=== PATIENT | male | born 1980 | race Caucasian/White ===

== ENCOUNTER → 2024-10-30 | Outpatient (CLI) | payer BC, SELFPAY ==
--- NOTE | 2024-10-30 | XR_ITS ---
Examination: PA lateral chest 2 views TECHNIQUE: Upright PA lateral chest 2 views Date and time: October 30, 2024 0756 hours INDICATIONS: Chest pain 2 months after falling off a horse FINDINGS: Normal heart size. No pneumothorax. Clavicles ribs thoracic vertebral bodies appear intact IMPRESSION: No pneumothorax or pulmonary contusion. Osseous structures are intact.
--- NOTE | 2024-10-30 | XR_ITS ---
Examination: Lumbar spine 3 views Technique one AP lateral coned lateral lower lumbar spine 3 views Date and time: October 30, 2024 0801 hours INDICATIONS: Low back pain radiating to the right hip beginning one month ago FINDINGS: 9 mm calculus lower pole right kidney No lumbar fracture Advanced disc narrowing L5-S1 IMPRESSION: No lumbar fracture Advanced degenerative disc disease L5-S1
[2024-10-30 09:11] LABS: Basophils # (Auto) 0.1 Thou/mm3 (0.0-0.2); Basophils % (Auto) 1 % (0-2.5); Eosinophils # (Auto) 0.2 Thou/mm3 (0.0-0.5); Eosinophils % (Auto) 3 % (0-10); Hematocrit 49.7 % (41.0-53.0); Hemoglobin 16.8 g/dL (13.5-16.0); Immature Granulocytes Auto 0.02 Thou/mm3 (0.00-0.00); Lymphocytes # (Auto) 1.4 Thou/mm3 (1.0-4.8); Lymphocytes % (Auto) 21 % (10-50); Mean Corpuscular HGB Conc 33.8 g/dl (31.0-37.0); Mean Corpuscular Hemoglobin 29.8 pg (25.0-35.0); Mean Corpuscular Volume 88 fL (80-100); Monocytes # (Auto) 0.7 Thou/mm3 (0.0-0.8); Monocytes % (Auto) 10 % (0-12); Neutrophils # (Auto) 4.4 Thou/mm3 (1.8-7.7); Neutrophils % (Auto) 65 % (37-80); Nucleated Red Blood Cell # 0.00 Thou/mm3 (0.00-0.00); Nucleated Red Blood Cell % 0 /100 WBC (0); Platelet Count 266 Thou/mm3 (140-440); RDW Standard Deviation 42.5 fL (35.1-43.9); Red Blood Count 5.63 Miln/mm3 (4.50-5.90); White Blood Count 6.8 Thou/mm3 (3.8-10.6)
[2024-10-30 09:17] LABS: Glucose Estimated Average 105 mg/dL (80-131); Hemoglobin A1C 5.3 % Hgb (4.8-6.0)
[2024-10-30 09:48] LABS: Alanine Aminotransferase 78 U/L (10-49); Albumin, Serum 4.8 gm/dL (3.5-5.0); Albumin/Globulin Ratio 1.8 (1.2-2.2); Alkaline Phosphatase 89 U/L (46-116); Anion Gap 5 (7-16); Aspartate Amino Transferase 50 U/L (0-34); BUN/Creatinine Ratio 12 Ratio (12-20); Bilirubin,Total 1.4 mg/dL (0.3-1.2); Blood Urea Nitrogen 17 mg/dL (9-23); Calcium 10.1 mg/dL (8.3-10.6); Calcium (Corrected) 10.1 mg/dL (8.5-10.1); Carbon Dioxide 30.8 mMol/L (20.0-31.0); Cardiac Risk Estimate 4.0 RATIO (4.0-6.7); Chloride 104 mMol/L (98-107); Cholesterol 174 mg/dL (132-200); Creatinine (Component) 1.4 mg/dL (0.6-1.3); Free T3 3.2 pg/mL (2.3-4.2); Free T4 (Free Thyroxine) 1.12 ng/dL (0.89-1.76); Globulin 2.7 gm/dL (2.3-3.5); Glucose 109 mg/dL (74-106); HDL Cholesterol 43 mg/dL (40-60); LDL Cholesterol,Calculated 102 mg/dL (0-130); Osmolality,Calculated 281 (275-295); Potassium 4.4 mMol/L (3.4-5.1); Sodium 140 mMol/L (136-145); Thyroid Stimulating Hormone 1.22 uIU/mL (0.55-4.78); Total Protein 7.5 gm/dL (5.7-8.2); Triglycerides 145 mg/dL (30-150); eGFR > 60 See Note
[2024-10-30 09:49] LABS: Folate 10.48 ng/mL (>5.38); Vitamin B12 648 pg/mL (211-911); Vitamin D 25 Hydroxy Total 39.6 ng/mL (7.3-40.2)
== END | disposition home or self-care (01) ==
PROVIDERS: Referring Provider Nurse Practitioner; Visit Provider Nurse Practitioner
DX: R07.89 Other chest pain (principal); M51.370 Other intervertebral disc degeneration, lumbosacral region with discogenic back pain only; E29.1 Testicular hypofunction; R53.83 Other fatigue; Z13.1 Encounter for screening for diabetes mellitus
CPT/HCPCS: 36415; 71046; 72100; 80053; 80061; 82306; 82607; 82670; 82681; 82746; 83036; 84402; 84403; 84439; 84443; 84481; 85025

== ENCOUNTER → 2025-02-04 | Outpatient (CLI) | payer OTHER, SELFPAY ==
--- NOTE | 2025-02-04 13:30 | XR_ITS ---
Examination: CT abdomen and pelvis without contrast. Coronal 3-D reconstructions. Sagittal 2-D reconstructions. Date and time of exam: February 04, 2025, 1308 hours, comparison 01/18/2021 INDICATIONS: Right sided flank pain 3 months, history kidney stones CTDI: vol (mGy): 8.56 DLP: (mGycm): 534 Technique: Axial images of the abdomen have been obtained, 3 mm slice thickness Intravenous contrast material has not been administered. Low dose protocols were performed. One or more of the following dose reduction techniques were used; automated exposure control, adjustment of the mA and/or KV according to patient size, use of iterative reconstruction technique. Findings: Fatty infiltration throughout the liver no focal liver or splenic lesions No gallstones No pancreatic or adrenal mass 1 mm nonobstructing left renal calculus Mild right hydronephrosis, 10 mm calculus in a lower pole calyx right kidney No ureteral calculi Aorta normal size Absent appendix No bowel obstruction No bladder mass or bladder calculi Mild prostatomegaly Advanced disc narrowing L5-S1 IMPRESSION: 1 mm nonobstructing left renal calculus Mild right hydronephrosis, 10 mm calculus in a lower pole calyx right kidney, no ureteral calculi
== END | disposition home or self-care (01) ==
PROVIDERS: PCP Family Medicine; Referring Provider Surgery; Visit Provider Surgery
DX: N20.0 Calculus of kidney (principal); N13.30 Unspecified hydronephrosis
CPT/HCPCS: 74176

== ENCOUNTER → 2025-03-17 | Outpatient (CLI) | payer OTHER, SELFPAY ==
--- NOTE | 2025-03-17 08:45 | XR_ITS ---
Examination: MRI lumbar spine without contrast Date and time of exam: March 17, 2025, 0918 hours INDICATIONS: Low back pain radiating down the legs 10 years worse the last 2 months COMPARISON: February 29, 2016 Technique: Multiple MRI axial and sagittal sections lumbar spine. Sagittal T2-weighted images, TR 3500, TE 118 T1 weighted transverse sections, TR 688 T8.5, T2-weighted sagittal sections T1 weighted sagittal sections TR 621, TE 30 T2 axial sections, TR 4, 190, TE 84. Findings: Advanced disc narrowing L5-S1 with reactive bony endplate change No lumbar fracture No spondylolisthesis L5-S1 5.5 mm central lumbar disc bulge contiguous with the S1 nerve roots and producing mild left L5 ganglionic compression L4-L5 2 mm central lumbar disc bulge More cephalad levels unremarkable IMPRESSION: Advanced degenerative disc disease L5-S1 L5-S1 5.5 mm central lumbar disc bulge contiguous with the right and left S1 nerve roots and producing mild left L5 ganglionic compression L4-L5 2 mm central lumbar disc bulge
== END | disposition home or self-care (01) ==
PROVIDERS: PCP Nurse Practitioner; Referring Provider Nurse Practitioner; Visit Provider Nurse Practitioner
DX: M51.370 Other intervertebral disc degeneration, lumbosacral region with discogenic back pain only (principal); M51.360 Other intervertebral disc degeneration, lumbar region with discogenic back pain only; G95.20 Unspecified cord compression
CPT/HCPCS: 72148

== ENCOUNTER 2025-04-10 06:10 | Day surgery (SDC) | payer BC, SELFPAY ==
--- NOTE | 2025-04-08 07:07 | EKG_ITS ---
[facility] Test Date: 2025-04-08 Pat Name: FILIPE SOSA Department: Room: - Gender: Male Dock Associate: ABDOUL : 1980 Requested By: Jermain Garcia Order Number: [id number] Reading MD: Jermain Garcia Measurements Intervals Avery Rate: 65 P: 28 IL: 141 QRS: -37 QRSD: 98 T: 4 QT: 385 QTc: 401 Interpretive Statements SINUS RHYTHM MARKED LEFT AXIS DEVIATION [QRS AXIS < -30] VOLTAGE CRITERIA FOR LVH [MEETS CRITERIA IN ONE OF: R(aVL), S(V1), R(V5), R(V5/V6)+S(V1)] Compared to ECG 01/17/2021 08:30:35 No significant changes /store/S0/[id number]/[id number].pdf
[2025-04-08 11:07] VITALS: BMI 33.0
[2025-04-08 11:39] LABS: Collection Type, Urine Clean Catch
[2025-04-08 12:32] LABS: Basophils # (Auto) 0.1 Thou/mm3 (0.0-0.2); Basophils % (Auto) 1 % (0-2.5); Eosinophils # (Auto) 0.2 Thou/mm3 (0.0-0.5); Eosinophils % (Auto) 2 % (0-10); Hematocrit 46.3 % (41.0-53.0); Hemoglobin 15.4 g/dL (13.5-16.0); Immature Granulocytes Auto 0.04 Thou/mm3 (0.00-0.00); Lymphocytes # (Auto) 1.6 Thou/mm3 (1.0-4.8); Lymphocytes % (Auto) 24 % (10-50); Mean Corpuscular HGB Conc 33.3 g/dl (31.0-37.0); Mean Corpuscular Hemoglobin 29.4 pg (25.0-35.0); Mean Corpuscular Volume 88 fL (80-100); Monocytes # (Auto) 0.6 Thou/mm3 (0.0-0.8); Monocytes % (Auto) 9 % (0-12); Neutrophils # (Auto) 4.2 Thou/mm3 (1.8-7.7); Neutrophils % (Auto) 63 % (37-80); Nucleated Red Blood Cell # 0.00 Thou/mm3 (0.00-0.00); Nucleated Red Blood Cell % 0 /100 WBC (0); Platelet Count 272 Thou/mm3 (140-440); RDW Standard Deviation 41.8 fL (35.1-43.9); Red Blood Count 5.24 Miln/mm3 (4.50-5.90); White Blood Count 6.7 Thou/mm3 (3.8-10.6)
[2025-04-08 12:36] LABS: Bilirubin,Urine Negative (Negative); Blood,Urine Negative (Negative); Clarity,Urine Clear (Clear/Hazy); Color,Urine Lt-Yellow (Lt Yel-Yel); Glucose, Urine Negative (Negative); Ketones,Urine Negative (Negative); Leukocyte Esterase,Urine Negative (Negative); Nitrite,Urine Negative (Negative); PH,Urine 6.5 (5.0-7.0); Protein,Urine Negative (Neg - Trace); RBC,Urine 2 /hpf (0-3); Specific Gravity,Urine 1.012 (1.001-1.035); Squamous Epithelial Cell,Urine < 1 /hpf (0-5); Urobilinogen,Urine Negative mg/dL (0.0-1.0); WBC,Urine 1 /hpf (0-5)
[2025-04-08 12:44] LABS: Anion Gap 7 (7-16); BUN/Creatinine Ratio 8 Ratio (12-20); Blood Urea Nitrogen 11 mg/dL (9-23); Calcium 9.8 mg/dL (8.3-10.6); Carbon Dioxide 29.2 mMol/L (20.0-31.0); Chloride 104 mMol/L (98-107); Creatinine (Component) 1.3 mg/dL (0.6-1.3); Estimated Creatinine Clearance 87.9 mL/min (>60); Glucose 105 mg/dL (74-106); Osmolality,Calculated 278 (275-295); Potassium 4.5 mMol/L (3.4-5.1); Sodium 140 mMol/L (136-145); eGFR > 60 See Note
--- NOTE | 2025-04-09 13:23 | ESHP_ITS ---
RE: FILIPE SOSA : 1980 DATE OF ADMISSION: 04/09/2025 HISTORY OF PRESENT ILLNESS: A 44-year-old male with a right kidney stone which is about 10 mm in size. Patient is now scheduled to have cystoscopy, right ureteral stent insertion, and ESWL for the right renal stone. Patient has a history of urinary calculi. He has past stones in the past. PAST SURGICAL HISTORY: Previous surgery included surgery on his left hand and appendectomy. PAST MEDICAL HISTORY: Patient does not have any history of diabetes mellitus. No history of hypertension. SOCIAL HISTORY: Patient has 3 children. ALLERGIES: NONE KNOWN. MEDICATIONS: None. PHYSICAL EXAMINATION: Clinical examination reveals: HEENT: Normal. NECK: Supple. LUNGS: Clear. HEART: Heart sounds are normal. ABDOMEN: Soft without any organomegaly. No guarding. No rigidity. EXTREMITIES: Normal. IMPRESSION: Bilateral renal calculi. Patient does have a right renal stone 10 mm in size. The left-sided kidney stone is 1 mm in size. PLAN: Cystoscopy, right ureteral stent insertion, and ESWL for right renal stone. Planned procedure, risks and complications have been discussed with the patient. Patient has understood them and agreed to proceed. DT: 12:53:46 TT: 13:22:00 Ref: [id number] - TID: [id number]
[2025-04-10] VITALS (8 sets, daily range): BP systolic 101–122; BP diastolic 62–88; PULSE 65–80; RESP 13–18; TEMP 36.2–36.6; O2SAT 94–100; BMI 32.8
--- NOTE | 2025-04-10 06:00 | XR_ITS ---
Examination: Abdomen AP single view Technique: AP portable supine abdomen, single view Exam date and time: KUB on 04/10/2025 at 7:28 a.m. CLINICAL HISTORY: Preoperative for ESWL, kidney stone on the right FINDINGS: There is an essentially 10 mm diameter calculus overlying the lower third of the right kidney shadow. No other visible calculi are seen overlying either kidney or ureter. Bowel gas pattern appears normal as do the visible bones in the lumbar spine and pelvis IMPRESSION: 1. There is a single 1 cm diameter calculus overlying the right kidney shadow, at the junction of the middle and lower thirds of the kidney.
--- NOTE | 2025-04-10 07:27 | SUR.PREOP ---
Patient expressed gratitude for visit.
--- NOTE | 2025-04-10 09:40 | SUR.PHASEI ---
0940: pt received from OR via [employer]. received report from CANELO Velasco and CARL Donohue. pt sleepy but arousable when called his name. no s/s of resp. distress or discomfort. no s/s of pain or discomfort. noted redness to pt back right side. no bleeding or discoloration noted.
[2025-04-10] MEDS: fentaNYL CIT INJ 50 mCg/ML AMP 2ML 25 MCG IV (09:51)
[2025-04-10] MEDS: HYDROmorphone INJ 2 MG/ML VIAL IV (10:05)
--- NOTE | 2025-04-10 10:10 | SUR.PHASEII ---
1010: pt alert and oriented to name, place and time. no s/s of resp. distress or discomfort. redness to back-right side remains but fading.
--- NOTE | 2025-04-10 10:10 | SUR.PHASEI ---
1010: able to drink water without any issues.
--- NOTE | 2025-04-10 10:48 | SUR.PHASEII ---
1048: pt discharge to home via wheelchair. pt alert and oriented. no s/s of resp. distress or discomfort. denies any pain or discomfort. redness to back-right side remains but fading. discharge instructions given to Mom-Blessing and pt, all questions were answer. all belongings brought given back to patient.
--- NOTE | 2025-04-10 19:43 | ESOP_ITS ---
RE: FILIPE SOSA : 1980 PREOPERATIVE DIAGNOSIS: Right renal stone about 8 mm in size. POSTOPERATIVE DIAGNOSIS: Right renal stone about 8 mm in size. PROCEDURE PERFORMED: ESWL for right renal stone. ANESTHESIA: General. INDICATION: Patient is a 44-year-old gentleman with history of urinary calculi. He had stones in his kidneys. He has about 8-10 mm stone in the right kidney and about a 1 mm stone in the left kidney. He is now scheduled to have ESWL for the right kidney stone. Today's x-ray revealed the stone to be about 8 mm in size and we decided not to put the stent in this patient. DESCRIPTION OF PROCEDURE: Patient was brought to the operating room under adequate general anesthesia. He was placed on Dornier Delta 3 lithotripsy machine. 2500 shocks were given to the stone power level 8. Patient tolerated the entire procedure well and left the room in good condition. DT: 09:34:19 TT: 19:42:00 Ref: [id number] - TID: [id number]
== END 2025-04-10 10:48 | disposition home or self-care (01) ==
PROVIDERS: PCP Family Medicine; Referring Provider Surgery; Visit Provider Surgery
PROC: (CPT 50590; principal; 2025-04-10 08:30)
DX: N20.0 Calculus of kidney (principal); Z01.810 Encounter for preprocedural cardiovascular examination
CPT/HCPCS: 50590; 36415; 74018; 80048; 81001; 85025; 87086; 93005; A4649; J0131; J0694; J1100; J1171; J1885; J2250; J2371; J2405; J2704; J3010; J3490